=== PATIENT | female | born 1950 | race Caucasian/White ===

== ENCOUNTER → 2016-12-25 | Day surgery (SDC) | payer OTHER ==
[2016-12-25] VITALS (8 sets, daily range): BP systolic 92–117; BP diastolic 44–68
[~2016-12-25] VITALS: Ht 154.9 cm; Wt 74.8 kg
[~2016-12-25] MED LIST: ATORVASTATIN CA80 MG ORAL; Akten 3.5% 1ml Btl ONE; BSS 15ml BTL ONE; BSS 500ml btl ONE; Dexamethasone 4mg/ml vial ONE; Diclofenac Sod 0.1% Op Soln ONE; EPINEPHrine 1mg/1ml Amp ONE; Gatifloxacin Opth Solution 0.5% ONE; IRON160 MG PO; LISINOPRIL10 MG ORAL; LOVENOX10 M4 SUBQ; LR 1000ml ONE; LYRICA75 M1 ORAL; Lidocaine 1% MPF 10mg/ml 5ml ONE; Midazolam 2mg/2ml Inj ONE; NS Irrig 1000ml ONE; PLAVIX75 MG ORAL; Phenylephrine 2.5% Op Soln ONE; Povidone-Iodine 5% opth solution ONE; Sodium Hyaluronate 14 mg/ml 0.85ml ONE; Sterile Water Irrig 1000ml IRRIG ONE; Tobradex Opth Susp 2.5ml ONE; Tropicamide 1% Opth Soln ONE; fentaNYL 100 mcg/2 mL IV ONE
[2016-12-25] MEDS: Phenylephrine 2.5% Op Soln LEFT EYE SCH ×3 (06:00→06:28)
[2016-12-25] MEDS: Tobradex Opth Susp 2.5ml LEFT EYE SCH ×3 (06:00→06:28)
[2016-12-25] MEDS: Diclofenac Sod 0.1% Op Soln LEFT EYE SCH ×3 (06:01→06:28)
[2016-12-25] MEDS: Gatifloxacin Opth Solution 0.5% LEFT EYE SCH ×3 (06:01→06:28)
[2016-12-25] MEDS: Akten 3.5% 1ml Btl LEFT EYE SCH ×3 (06:01→06:28)
[2016-12-25] MEDS: Tropicamide 1% Opth Soln LEFT EYE SCH ×3 (06:01→06:28)
--- NOTE | 2016-12-25 07:38 | Pre-Procedure Note/Attestation ---
Pre-Procedure Note/Attestation Complete Prior to Procedure Planned Procedure: left Procedure Narrative: cataract extraction with implant left eye Indications for Procedure Pre-Operative Diagnosis: cataract left eye Attestation I attest that I discussed the nature of the procedure; its benefits; risks and complications; and alternatives (and the risks and benefits of such alternatives ), prior to the procedure, with the patient (or the patient's legal sales and service representative). I attest that, if there was a reasonable possibility of needing a blood transfusion, the patient (or the patient's legal sales and service representative) was given the [facility] standardized written summary, pursuant to the Adrián Anastasia Blood Safety Act ([place] Health and Safety Code # 1645, as amended). I attest that I re-evaluated the patient just prior to the surgery and that there has been no change in the patient's H&P, except as documented below: JUDSON BOLTON Dec 25, 2016 07:38
--- NOTE | 2016-12-25 09:16 | Anethesia Preoperative Eval ---
Anesthesia Pre-op PMH/ROS General Date of Evaluation: Dec 25, 2016 Time of Evaluation: 09:14 Anesthesiologist: meagan ASA Score: ASA 2 Mallampati Score Class I : Soft palate, uvula, fauces, pillars visible Class II: Soft palate, uvula, fauces visible Class III: Soft palate, base of uvula visible Class IV: Only hard plate visible Mallampati Classification: Class III Surgeon: sandra Diagnosis: cataract Surgical Procedure: cataract extraction left eye with IOL Anesthesia History: none Family History: no anesthesia problems Allergies: Coded Allergies: IODINE (Verified Allergy, Unknown, 05/23/09) SULFA (SULFONAMIDE ANTIBIOTICS) (Verified Allergy, Unknown, 05/23/09) Medications: see eMAR Past Medical History Cardiovascular: Reports: HTN Pulmonary: Reports: ALEXNADER Gastrointestinal/Genitourinary: Denies: CRI, ESRD, GERD, other Neurologic/Psychiatric: Denies: CVA, TIA, dementia, depression/anxiety, other Endocrine: Denies: DM, hypothyroidism, other, steroids HEENT: Reports: cataract (L) Hematology/Immune: Denies: DVT, anemia, bleeding disorder, other Musculoskeletal/Integumentary: Reports: DJD Other: obesity PSxH Narrative: hip surgery Anesthesia Pre-op Phys. Exam Physician Exam Last Vital Signs Date Time Temp Pulse Resp B/P Pulse Ox O2 Delivery O2 Flow Rate FiO2 12/25/16 06:18 97.6 68 18 112/63 98 Room Air Constitutional: NAD Neurologic: CN 2-12 intact Cardiovascular: RRR Respiratory: CTA Airway Exam Mallampati Classification 3 Mallampati Score: Class II MO: full ROM: full Dentures: no lower, no upper Anesthesia Pre-op A/P Studies Pre-op Studies: EKG - SR Risk Assessment & Plan Plan: mac Status Change Before Surgery: No Pre-Antibiotics Drug: none Given Within 1 Hr of Incision: PAULINA Martin CRNA Dec 25, 2016 09:16
--- NOTE | 2016-12-25 09:32 | Brief Operative Note ---
Immediate Post Operative Note Operative Note Pre-op Diagnosis: cataract left eye Procedure: phacoemulsification of cataract with implant left eye Post-op Diagnosis: same as pre-op Surgeon: judson flores Cost Consultant: none Anesthesiologist: cristy rhodes crna Anesthesia: MAC Specimen: none Complications: none Condition: stable Estimated Blood Loss: none Drains: none Implant(s) used?: Yes JUDSON FLORES Dec 25, 2016 09:32
--- NOTE | 2016-12-25 09:55 | Immediate Post-Op Evaluation ---
Immediate Post-Op Evalulation Immediate Post-Op Evalulation Procedure: cataract extraction with IOL left eye Date of Evaluation: Dec 25, 2016 Time of Evaluation: 09:27 IV Fluids: 300 Blood Pressure Systolic: 92 Blood Pressure Diastolic: 50 Pulse Rate: 69 O2 Sat by Pulse Oximetry: 99 Temperature (Fahrenheit): 97.4 Nausea: No Vomiting: No Complications none Patient Status: awake, reacts, patent Hydration Status: adequate Drug: none CASSIARIPAULINA LEVY CRNA Dec 25, 2016 09:55
--- NOTE | 2016-12-25 10:24 | 48 Hour Post Anesthesia Eval ---
Post Anesthesia Evaluation Procedure: cataract extraction with IOL left eye Date of Evaluation: Dec 25, 2016 Time of Evaluation: 10:22 Blood Pressure Systolic: 105 0: 56 O2 Sat by Pulse Oximetry: 98 Airway: patent Nausea: No Vomiting: No Hydration Status: adequate Mental Status/LOC: patient returned to baseline Post-Anesthesia Complications: none Follow-up care needed: N/A PAULINA RODRÍGUEZ CRNA Dec 25, 2016 10:24
--- NOTE | 2016-12-25 15:38 | Operative Note - Dictated ---
DATE OF OPERATION: 12/25/2016 PREOPERATIVE DIAGNOSIS: Cataract, left eye. POSTOPERATIVE DIAGNOSIS: Cataract, left eye. PROCEDURE: Phacoemulsification of cataract, left eye, with placement of posterior chamber intraocular lens. SURGEON: Cade Thomas M.D. ([facility] [place] METAL PRECISION MACHINE ASSEMBLER: None. ANESTHESIA: MAC/topical. ANESTHESIOLOGIST: Suyapa Ag C.R.N.A. INDICATION FOR PROCEDURE: Poor vision, left eye. DESCRIPTION OF FINDINGS: Dense nuclear sclerotic cataract, left eye. DESCRIPTION OF PROCEDURE: The patient received a topical anesthetic block consisting of 3.5% Akten eye drops. The eye was then prepped and draped in the usual manner. A lid speculum was placed. An operating Zeiss microscope was positioned. A temporal corneal groove was made with a myra blade. A SuperSharp blade made a stab incision at the 6 o'clock position. A 0.1 mL of 1% nonpreserved intracameral lidocaine was injected. Healon was instilled into the anterior chamber, and a 2.5/2.8 mm trapezoidal myra blade was used to complete the temporal corneal wound. A cystotome was used to create an anterior capsular flap. Utrata forceps were used to complete the capsulorrhexis. BSS on a cannula was used to hydrodissect the nucleus. Lens nucleus was phacoemulsified in a phaco-fracture technique. Remaining cortical material was removed with the I/A and the posterior capsule was polished with the I/A on Cap Vac. Healon was reinstilled in the capsular bag and anterior chamber, and an Kem foldable one-piece posterior chamber intraocular lens, model [id number], power 20.5 diopter, serial #[id number], was placed in the injector. The lens was put in the capsular bag. The I/A tip was used to remove the Healon and position the lens. The wound edge was hydrated with BSS and a blunt-tipped cannula. The wound was checked and found to be watertight. The lid speculum was removed, and a drop of TobraDex and Zymaxid was placed. A clear plastic shield was taped over the eye. The patient tolerated the procedure well and left the operating room in good condition. Cade Thomas M.D. ([facility]) DR: CHAPARRO JOB#: [id number] CC: Grazyna Richardson M.D. MTDD
== END | disposition home or self-care (01) ==
LOC: SUR 05:29
DX: H25.12 Age-related nuclear cataract, left eye (principal); D64.9 Anemia, unspecified; I10 Essential (primary) hypertension; K21.9 Gastro-esophageal reflux disease without esophagitis; K44.9 Diaphragmatic hernia without obstruction or gangrene; F32.9 Major depressive disorder, single episode, unspecified; M48.06 Spinal stenosis, lumbar region; D32.9 Benign neoplasm of meninges, unspecified; M19.90 Unspecified osteoarthritis, unspecified site; G90.529 Complex regional pain syndrome I of unspecified lower limb; E66.9 Obesity, unspecified; Z68.31 Body mass index [BMI] 31.0-31.9, adult; G47.30 Sleep apnea, unspecified; Z98.84 Bariatric surgery status; Z96.642 Presence of left artificial hip joint; Z96.651 Presence of right artificial knee joint; Z87.19 Personal history of other diseases of the digestive system; Z88.6 Allergy status to analgesic agent; Z88.3 Allergy status to other anti-infective agents; Z88.5 Allergy status to narcotic agent; Z88.2 Allergy status to sulfonamides; Z79.01 Long term (current) use of anticoagulants
CPT/HCPCS: 66984; J0171; J1100; J2250; J3010; J7120; V2632; 94003; 94150

== ENCOUNTER 2017-11-05 10:07 | Outpatient (RCR) | payer OTHER ==
[~2017-11-05 10:07] MED LIST changes: -Akten 3.5% 1ml Btl ONE; -BSS 15ml BTL ONE; -BSS 500ml btl ONE; -Dexamethasone 4mg/ml vial ONE; -Diclofenac Sod 0.1% Op Soln ONE; -EPINEPHrine 1mg/1ml Amp ONE; -Gatifloxacin Opth Solution 0.5% ONE; -LR 1000ml ONE; -Lidocaine 1% MPF 10mg/ml 5ml ONE; -Midazolam 2mg/2ml Inj ONE; -NS Irrig 1000ml ONE; -Phenylephrine 2.5% Op Soln ONE; -Povidone-Iodine 5% opth solution ONE; -Sodium Hyaluronate 14 mg/ml 0.85ml ONE; -Sterile Water Irrig 1000ml IRRIG ONE; -Tobradex Opth Susp 2.5ml ONE; -Tropicamide 1% Opth Soln ONE; -fentaNYL 100 mcg/2 mL IV ONE
== END 2017-11-26 | disposition home or self-care (01) ==
LOC: PTY 10:07 → EEVIPCON 10:07
DX: Z96.651 Presence of right artificial knee joint (principal)
CPT/HCPCS: 97035; 97110; 97140; 97162; G0283

== ENCOUNTER 2017-12-03 08:45 | Outpatient (RCR) | payer OTHER | END 2017-12-24 | disposition home or self-care (01) | LOC: PTY 08:45 | DX: Z96.651 Presence of right artificial knee joint (principal); I10 Essential (primary) hypertension ==

== ENCOUNTER 2017-12-26 08:05 | Outpatient (RCR) | payer OTHER | END 2018-01-24 | disposition home or self-care (01) | LOC: PTY 08:05 | DX: M25.561 Pain in right knee (principal); Z96.651 Presence of right artificial knee joint ==

== ENCOUNTER 2018-02-02 12:50 | Outpatient (RCR) | payer OTHER | END 2018-02-23 | disposition home or self-care (01) | LOC: PTY 12:50 | DX: M25.561 Pain in right knee (principal); Z96.651 Presence of right artificial knee joint; I10 Essential (primary) hypertension ==

== ENCOUNTER 2018-03-10 15:45 | Outpatient (RCR) | payer OTHER | END 2018-03-26 | disposition home or self-care (01) | LOC: PTY 15:45 | DX: M25.561 Pain in right knee (principal); Z96.651 Presence of right artificial knee joint ==

== ENCOUNTER 2018-03-30 13:57 | Outpatient (RCR) | payer OTHER | END 2018-04-25 | disposition home or self-care (01) | LOC: PTY 13:57 | DX: Z47.1 Aftercare following joint replacement surgery (principal); M25.561 Pain in right knee; Z96.651 Presence of right artificial knee joint ==

== ENCOUNTER 2018-04-27 13:55 | Outpatient (RCR) | payer OTHER | END 2018-05-26 | disposition home or self-care (01) | LOC: PTY 13:55 | DX: Z47.1 Aftercare following joint replacement surgery (principal); Z96.651 Presence of right artificial knee joint ==

== ENCOUNTER 2018-06-12 08:00 | Outpatient (RCR) | payer OTHER | END 2018-06-26 | disposition home or self-care (01) | LOC: PTY 08:00 | DX: Z47.1 Aftercare following joint replacement surgery (principal); Z96.651 Presence of right artificial knee joint ==